=== PATIENT | female | born 1990 | race Caucasian/White ===

== ENCOUNTER 2022-04-27 20:54 | Emergency (ER) | payer OTHER, SELFPAY ==
[2022-04-27 21:00] VITALS: BP 137/88; PULSE 81; RESP 22; TEMP 36.6; O2SAT 97
[2022-04-27 22:05] LABS: Acetaminophen < 10 ug/mL (10-30); Ethanol (ETOH) < 10 mg/dL; HEMOLYSIS < 15 (0-50); Salicylate < 1.0 mg/dL (<20)
[2022-04-27 22:06] LABS: Add Manual Diff / Slide Review NO; Alanine Aminotransferase 48 IU/L (<35); Albumin 4.8 g/dL (3.5-5.0); Albumin Globulin Ratio 1.4 (1.0-2.8); Alkaline Phosphatase 110 U/L (38-126); Aspartate Aminotransferase 36 IU/L (14-36); BUN Creatinine Ratio 16.4 (6-22); Basophils Absolute Auto 100 /uL (0-100); Basophils Percent Auto 1.1 % (0-2); Bilirubin Total 0.6 mg/dL (0.2-1.3); Blood Urea Nitrogen 11 mg/dL (7-17); Calcium 9.4 mg/dL (8.4-10.2); Carbon Dioxide 22 mmol/L (22-32); Chloride 104 mmol/L (98-107); Eosinophils Absolute Auto 200 /uL (0-450); Estimated Glomerular Filt Rate > 60 mL/min (>60); Globulin 3.5 g/dL (1.7-4.1); Glucose 111 mg/dL (70-100); Hematocrit 35.6 % (36-46); Hemoglobin 12.6 g/dL (12.0-16.0); Lymphocytes Absolute Auto 2400 /uL (1100-4500); Mean Corpuscular HGB Conc 35.4 % (30-36); Mean Corpuscular Hemoglobin 30.2 PG (26-34); Mean Corpuscular Volume 85.3 fL (80-100); Monocytes Absolute Auto 400 /uL (0-900); Monocytes Percent Auto 6.8 % (3-14); Neutrophils Absolute Auto 3300 /uL (1500-7000); Neutrophils Percent Auto 52.1 % (50-75); Platelet Count 264 X10^3/uL (150-400); Potassium 3.7 mmol/L (3.4-5.1); Red Blood Cell Count 4.17 X10^6/uL (4.0-5.2); Red Cell Distribution Width 13.2 % (11.6-14.8); Sodium 138 mmol/L (137-145); Total Protein 8.3 g/dL (6.3-8.2); White Blood Cell Count 6.4 X10^3/uL (4.5-11.0)
[2022-04-27 22:35] LABS: Free T4, Direct Thyroxine 1.26 ng/dL (0.78-2.19)
[2022-04-27 22:44] LABS: UR Morphine/Opiate cutoff 300 Negative (Negative); Ur Creatinine 50 (Normal); Ur Specific Gravity 1.025 (Normal); Urine Amphetamines Negative (Negative); Urine Barbiturates Negative (Negative); Urine Benzodiazepines Negative (Negative); Urine Cocaine Negative (Negative); Urine MDMA Negative (Negative); Urine Methadone Negative (Negative); Urine Methamphetamines Negative (Negative); Urine Oxycodone Negative (Negative); Urine Phencyclidine Negative (Negative); Urine Tetrahydrocannabinol Negative (Negative); Urine Tricyclic Antidepressant Negative (Negative); Urine pH 5 (Normal)
[2022-04-27 22:50] LABS: Thyroid Stimulating Hormone 1.23 uIU/mL (0.47-4.68)
--- NOTE | 2022-04-28 00:18 | PC.NURSE ---
Patient laying back on gurney, sleeping. Respirations equal, regular and unlabored. No acute distress noted. Friend at bedside. 1:1 remains at bedside for safety.
--- NOTE | 2022-04-28 02:44 | PC.NURSE ---
Patient laying back on gurney, sleeping. Respirations equal, regular and unlabored. No acute distress noted. Friend sleeping at the bedside. 1:1 continued for safety.
--- NOTE | 2022-04-28 03:01 | PC.NURSE ---
GASOLINE DRAGLINE OPERATOR note: patient pumped and then went to the BR. Breast milk in fridge w/ label.
--- NOTE | 2022-04-28 06:35 | ED_ITS ---
HPI - Psych <Zoya Smith DO - Last Filed: 04/29/22 01:20> General Chief Complaint: Psychiatric Symptoms Stated Complaint: Needs to be seen, sent by [employer] Time Seen by Provider: 04/28/22 06:22 Source: patient Mode of arrival: Ambulatory History of Present Illness HPI Narrative: Patient is a healthy 31-year-old female within infant 2-month-old and a 3-year-old presenting today with suicidal ideations. States that she has started feeling this way for a couple of weeks. Stating that she just does not want to live. Her deployed last week for a six-month to [place] her feelings got even worse. She says she does not trust herself at home. There are multiple guns at home. She does not want to hurt her children however he just feels like she does not want to live. She does not want to feel this way she does not know why she is feeling this way. She does not trust herself. Related Data Allergies Allergy/AdvReac Type Severity Reaction Status Date / Time gluten Allergy Intermediate Hives Verified 04/28/22 06:35 Review of Systems <Zoya Smith DO - Last Filed: 04/29/22 01:20> Review of Systems Narrative: GENERAL: Denies chills,fever HEENT: Denies throat pain RESPIRATORY: Denies dyspnea, cough, wheezing CARDIOVASCULAR: Denies chest pain, palpitations GASTROINTESTINAL: Denies nausea, vomiting MUSCULOSKELETAL: Denies extremity pain, injury SKIN: No rash, no laceration, no pruritus NEUROLOGIC: Denies weakness, dizziness, headache, numbness 8 point review of systems is negative except for those stated above and HPI Psychiatric Psychiatric: Reports system reviewed and no additional complaints, except as documented, Denies homicidal ideation and Reports suicidal ideation Patient History <Zoya Smith DO - Last Filed: 04/29/22 01:20> Social History Smoking Status: Never smoker Smoking Status: Never smoker alcohol intake frequency: 0-2 drinks per day Exam <DO Dejon Kruse Last Filed: 04/29/22 01:20> Initial Vital Signs Initial Vital Signs: Vital Signs Temperature 97.8 F 04/27/22 21:00 Pulse Rate 81 04/27/22 21:00 Respiratory Rate 22 04/27/22 21:00 Blood Pressure 137/88 04/27/22 21:00 Pulse Oximetry 97 04/27/22 21:00 Oxygen Delivery Method 04/27/22 21:00 GENERAL: Tearful 31-year-old female CARDIOVASCULAR: peripheral pulses in tact, cap refill <2 sec RESPIRATORY: No respiratory distress, speaks in full sentences without difficulty EXTREMITIES: Normal range of motion, no clubbing or edema. Neurovascularly intact NEUROLOGICAL: Cranial nerves II through XII grossly intact. Normal gait and speech. SKIN: Warm, dry, no petechiae, no rashes or lesions. <Kita Dennis DO - Last Filed: 04/28/22 17:59> Initial Vital Signs Initial Vital Signs: Vital Signs Temperature 97.8 F 04/27/22 21:00 Pulse Rate 81 04/27/22 21:00 Respiratory Rate 22 04/27/22 21:00 Blood Pressure 137/88 04/27/22 21:00 Pulse Oximetry 97 04/27/22 21:00 Oxygen Delivery Method 04/27/22 21:00 Course <Zoya Smith DO - Last Filed: 04/29/22 01:20> Orders Ordered: Discontinued Medications Acetaminophen (Acetaminophen 325 Mg Tablet) 650 mg PO NOW ONE Stop: 04/28/22 12:32 Last Admin: 04/28/22 12:34 Dose: 650 mg Documented By: RASHMI Lorazepam (Lorazepam 0.5 Mg Tablet) 1 mg PO NOW ONE Stop: 04/28/22 13:54 Last Admin: 04/28/22 14:19 Dose: 1 mg Documented By: BRAULIO Vital Signs Vital signs: Vital Signs - 8 hr 04/28/22 17:37 Temperature 97.7 F Pulse Rate 79 Respiratory Rate 18 Blood Pressure 121/80 Pulse Oximetry 97 Oxygen Delivery Method Room Air <Kita Dennis DO - Last Filed: 04/28/22 17:59> Orders Ordered: Discontinued Medications Acetaminophen (Acetaminophen 325 Mg Tablet) 650 mg PO NOW ONE Stop: 04/28/22 12:32 Last Admin: 04/28/22 12:34 Dose: 650 mg Documented By: RASHMI Lorazepam (Lorazepam 0.5 Mg Tablet) 1 mg PO NOW ONE Stop: 04/28/22 13:54 Last Admin: 04/28/22 14:19 Dose: 1 mg Documented By: ADK Vital Signs Vital signs: Vital Signs - 8 hr 04/28/22 17:37 Temperature 97.7 F Pulse Rate 79 Respiratory Rate 18 Blood Pressure 121/80 Pulse Oximetry 97 Oxygen Delivery Method Room Air MDM - Psych <Zoya Sarah, - Last Filed: 04/29/22 01:20> Lab Data Result diagrams: 04/27/22 21:44 04/27/22 21:44 Labs: Lab Results 04/27/22 04/27/22 04/27/22 Range/Units 21:44 21:44 21:44 WBC 6.4 (4.5-11.0) X10^3/uL RBC 4.17 (4.0-5.2) X10^6/uL Hgb 12.6 (12.0-16.0) g/dL Hct 35.6 L (36-46) % MCV 85.3 (80-100) fL MCH 30.2 (26-34) PG MCHC 35.4 (30-36) % RDW 13.2 (11.6-14.8) % Plt Count 264 (150-400) X10^3/uL Neut % (Auto) 52.1 (50-75) % Lymph % (Auto) 37.0 (25-40) % [place] % (Auto) 6.8 (3-14) % Eos % (Auto) 3.0 (2-4) % Baso % (Auto) 1.1 (0-2) % Neut # (Auto) 3300 (8628-2210) /uL Lymph # (Auto) 2400 (1790-6722) /uL [place] # (Auto) 400 (0-900) /uL Eos # (Auto) 200 (0-450) /uL Baso # (Auto) 100 (0-100) /uL Sodium 138 (137-145) mmol/L Potassium 3.7 (3.4-5.1) mmol/L Chloride 104 (98-107) mmol/L Carbon Dioxide 22 (22-32) mmol/L BUN 11 (7-17) mg/dL Creatinine 0.67 (0.52-1.04) mg/dL Estimated GFR > 60 (>60) mL/min BUN/Creatinine Ratio 16.4 (6-22) Glucose 111 H (70-100) mg/dL Calcium 9.4 (8.4-10.2) mg/dL Total Bilirubin 0.6 (0.2-1.3) mg/dL AST 36 (14-36) IU/L ALT 48 H (<35) IU/L Alkaline Phosphatase 110 (38-126) U/L Total Protein 8.3 H (6.3-8.2) g/dL Albumin 4.8 (3.5-5.0) g/dL Globulin 3.5 (1.7-4.1) g/dL Albumin/Globulin Ratio 1.4 (1.0-2.8) TSH 1.23 (0.47-4.68) uIU/mL Free T4 1.26 (0.78-2.19) ng/dL Salicylates < 1.0 (<20) mg/dL U Opiates 300ng/mL cut (Negative) Ur Oxycodone Screen (Negative) Urine Methadone Screen (Negative) Acetaminophen < 10 (10-30) ug/mL Ur Barbiturates Screen (Negative) U Tricyclic Antidepress (Negative) Ur Phencyclidine Scrn (Negative) Ur Amphetamines Screen (Negative) U Methamphetamines Scrn (Negative) Ur MDMA Scrn (Ecstasy) (Negative) U Benzodiazepines Scrn (Negative) Urine Cocaine Screen (Negative) U Marijuana (THC) Screen (Negative) Ethyl Alcohol < 10 ( - 10) mg/dL SARS-CoV-2 (PCR) (Negative) 04/27/22 04/28/22 Range/Units 22:35 12:23 WBC (4.5-11.0) X10^3/uL RBC (4.0-5.2) X10^6/uL Hgb (12.0-16.0) g/dL Hct (36-46) % MCV (80-100) fL MCH (26-34) PG MCHC (30-36) % RDW (11.6-14.8) % Plt Count (150-400) X10^3/uL Neut % (Auto) (50-75) % Lymph % (Auto) (25-40) % [place] % (Auto) (3-14) % Eos % (Auto) (2-4) % Baso % (Auto) (0-2) % Neut # (Auto) (2963-5766) /uL Lymph # (Auto) (3390-7705) /uL [place] # (Auto) (0-900) /uL Eos # (Auto) (0-450) /uL Baso # (Auto) (0-100) /uL Sodium (137-145) mmol/L Potassium (3.4-5.1) mmol/L Chloride (98-107) mmol/L Carbon Dioxide (22-32) mmol/L BUN (7-17) mg/dL Creatinine (0.52-1.04) mg/dL Estimated GFR (>60) mL/min BUN/Creatinine Ratio (6-22) Glucose (70-100) mg/dL Calcium (8.4-10.2) mg/dL Total Bilirubin (0.2-1.3) mg/dL AST (14-36) IU/L ALT (<35) IU/L Alkaline Phosphatase (38-126) U/L Total Protein (6.3-8.2) g/dL Albumin (3.5-5.0) g/dL Globulin (1.7-4.1) g/dL Albumin/Globulin Ratio (1.0-2.8) TSH (0.47-4.68) uIU/mL Free T4 (0.78-2.19) ng/dL Salicylates (<20) mg/dL U Opiates 300ng/mL cut Negative (Negative) Ur Oxycodone Screen Negative (Negative) Urine Methadone Screen Negative (Negative) Acetaminophen (10-30) ug/mL Ur Barbiturates Screen Negative (Negative) U Tricyclic Antidepress Negative (Negative) Ur Phencyclidine Scrn Negative (Negative) Ur Amphetamines Screen Negative (Negative) U Methamphetamines Scrn Negative (Negative) Ur MDMA Scrn (Ecstasy) Negative (Negative) U Benzodiazepines Scrn Negative (Negative) Urine Cocaine Screen Negative (Negative) U Marijuana (THC) Screen Negative (Negative) Ethyl Alcohol ( - 10) mg/dL SARS-CoV-2 (PCR) Negative (Negative) Point of Care Testing Test Results Negative Urine Dip Bedside Urine Glucose Negative Bedside Urine Bilirubin - Negative Bedside Urine Ketone - Negative Bedside Urine Occult Blood - Negative Bedside Urine Protein - Negative Bedside Urine Urobilinogen - Negative Bedside Urine Nitrite - Negative Bedside Urine Leukocytes - Negative Esterase MDM Narrative Medical decision making narrative: Patient currently is voluntary. Awaiting social Work evaluation with probable placement. Patient does have twdfhg-ev-clr here now for temporary help with children. She does have a couple with friends. 1 is here now. Patient signed out to Dr. Dennis for further evaluation management and di sposition. 04/28/22 Jeannie: Patient signed out to myself by Dr. Smith. Patient has been having suicidal ideation she has express that she is not sure she can stay safe with her kids at home she is voluntary. She is quite anxious and concerned that she might lose her children if she goes inpatient but is seeking treatment. She has been in contact with multiple pull friends there is a tzdakk-gf-fbu here for temporary help with the children and her who is currently deployed is in process of being contacted. Patient had 1 dose of oral Ativan which she found mildly helpful. She was significantly more anxious once EMS arrived but continues to be agreeable. She has been pumping breast milk, discussed options she can ask for supervised pumping with a regular pump, she can asked to have a hand pump she is trying to wean down and we discussed potential treatments to help prevent mastitis and engorgement. Patient was found placement at [facility] and had prior authorization from [facility] [place]. <Kita Dennis, DO - Last Filed: 04/28/22 17:59> Lab Data Labs: Lab Results 04/27/22 04/27/22 04/27/22 Range/Units 21:44 21:44 21:44 WBC 6.4 (4.5-11.0) X10^3/uL RBC 4.17 (4.0-5.2) X10^6/uL Hgb 12.6 (12.0-16.0) g/dL Hct 35.6 L (36-46) % MCV 85.3 (80-100) fL MCH 30.2 (26-34) PG MCHC 35.4 (30-36) % RDW 13.2 (11.6-14.8) % Plt Count 264 (150-400) X10^3/uL Neut % (Auto) 52.1 (50-75) % Lymph % (Auto) 37.0 (25-40) % [place] % (Auto) 6.8 (3-14) % Eos % (Auto) 3.0 (2-4) % Baso % (Auto) 1.1 (0-2) % Neut # (Auto) 3300 (8296-6553) /uL Lymph # (Auto) 2400 (4907-5951) /uL [place] # (Auto) 400 (0-900) /uL Eos # (Auto) 200 (0-450) /uL Baso # (Auto) 100 (0-100) /uL Sodium 138 (137-145) mmol/L Potassium 3.7 (3.4-5.1) mmol/L Chloride 104 (98-107) mmol/L Carbon Dioxide 22 (22-32) mmol/L BUN 11 (7-17) mg/dL Creatinine 0.67 (0.52-1.04) mg/dL Estimated GFR > 60 (>60) mL/min BUN/Creatinine Ratio 16.4 (6-22) Glucose 111 H (70-100) mg/dL Calcium 9.4 (8.4-10.2) mg/dL Total Bilirubin 0.6 (0.2-1.3) mg/dL AST 36 (14-36) IU/L ALT 48 H (<35) IU/L Alkaline Phosphatase 110 (38-126) U/L Total Protein 8.3 H (6.3-8.2) g/dL Albumin 4.8 (3.5-5.0) g/dL Globulin 3.5 (1.7-4.1) g/dL Albumin/Globulin Ratio 1.4 (1.0-2.8) TSH 1.23 (0.47-4.68) uIU/mL Free T4 1.26 (0.78-2.19) ng/dL Salicylates < 1.0 (<20) mg/dL U Opiates 300ng/mL cut (Negative) Ur Oxycodone Screen (Negative) Urine Methadone Screen (Negative) Acetaminophen < 10 (10-30) ug/mL Ur Barbiturates Screen (Negative) U Tricyclic Antidepress (Negative) Ur Phencyclidine Scrn (Negative) Ur Amphetamines Screen (Negative) U Methamphetamines Scrn (Negative) Ur MDMA Scrn (Ecstasy) (Negative) U Benzodiazepines Scrn (Negative) Urine Cocaine Screen (Negative) U Marijuana (THC) Screen (Negative) Ethyl Alcohol < 10 ( - 10) mg/dL SARS-CoV-2 (PCR) (Negative) 04/27/22 04/28/22 Range/Units 22:35 12:23 WBC (4.5-11.0) X10^3/uL RBC (4.0-5.2) X10^6/uL Hgb (12.0-16.0) g/dL Hct (36-46) % MCV (80-100) fL MCH (26-34) PG MCHC (30-36) % RDW (11.6-14.8) % Plt Count (150-400) X10^3/uL Neut % (Auto) (50-75) % Lymph % (Auto) (25-40) % [place] % (Auto) (3-14) % Eos % (Auto) (2-4) % Baso % (Auto) (0-2) % Neut # (Auto) (4073-8717) /uL Lymph # (Auto) (4305-2265) /uL [place] # (Auto) (0-900) /uL Eos # (Auto) (0-450) /uL Baso # (Auto) (0-100) /uL Sodium (137-145) mmol/L Potassium (3.4-5.1) mmol/L Chloride (98-107) mmol/L Carbon Dioxide (22-32) mmol/L BUN (7-17) mg/dL Creatinine (0.52-1.04) mg/dL Estimated GFR (>60) mL/min BUN/Creatinine Ratio (6-22) Glucose (70-100) mg/dL Calcium (8.4-10.2) mg/dL Total Bilirubin (0.2-1.3) mg/dL AST (14-36) IU/L ALT (<35) IU/L Alkaline Phosphatase (38-126) U/L Total Protein (6.3-8.2) g/dL Albumin (3.5-5.0) g/dL Globulin (1.7-4.1) g/dL Albumin/Globulin Ratio (1.0-2.8) TSH (0.47-4.68) uIU/mL Free T4 (0.78-2.19) ng/dL Salicylates (<20) mg/dL U Opiates 300ng/mL cut Negative (Negative) Ur Oxycodone Screen Negative (Negative) Urine Methadone Screen Negative (Negative) Acetaminophen (10-30) ug/mL Ur Barbiturates Screen Negative (Negative) U Tricyclic Antidepress Negative (Negative) Ur Phencyclidine Scrn Negative (Negative) Ur Amphetamines Screen Negative (Negative) U Methamphetamines Scrn Negative (Negative) Ur MDMA Scrn (Ecstasy) Negative (Negative) U Benzodiazepines Scrn Negative (Negative) Urine Cocaine Screen Negative (Negative) U Marijuana (THC) Screen Negative (Negative) Ethyl Alcohol ( - 10) mg/dL SARS-CoV-2 (PCR) Negative (Negative) Point of Care Testing Test Results Negative Urine Dip Bedside Urine Glucose Negative Bedside Urine Bilirubin - Negative Bedside Urine Ketone - Negative Bedside Urine Occult Blood - Negative Bedside Urine Protein - Negative Bedside Urine Urobilinogen - Negative Bedside Urine Nitrite - Negative Bedside Urine Leukocytes - Negative Esterase MDM Narrative Medical decision making narrative: Patient currently is voluntary. To flee knees social Work evaluation with proba ble placement. Patient does have wetpfn-du-ycb here now for temporary help with children. She does have a couple with friends. 1 is here now. Patient signed out to Dr. Dennis for further evaluation management and disposition. 04/28/22 Jeannie: Patient signed out to myself by Dr. Smith. Patient has been having suicidal ideation she has express that she is not sure she can stay safe with her kids at home she is voluntary. She is quite anxious and concerned that she might lose her children if she goes inpatient but is seeking treatment. She has been in contact with multiple pull friends there is a souaza-ns-zpe here for temporary help with the children and her who is currently deployed is in process of being contacted. Patient had 1 dose of oral Ativan which she found mildly helpful. She was significantly more anxious once EMS arrived but continues to be agreeable. She has been pumping breast milk, discussed options she can ask for supervised pumping with a regular pump, she can asked to have a hand pump she is trying to wean down and we discussed potential treatments to help prevent mastitis and engorgement. Patient was found placement at [facility] and had prior authorization from [facility] [place]. Discharge Plan Departure Patient Disposition: Xfer Psychiatric Hosp Clinical Impression: Suicidal ideation Referrals: Provider,Tonny VALLECILLO [Primary Care Provider] -
[2022-04-28 07:01] VITALS: BP 111/65; PULSE 75; RESP 14; O2SAT 99
--- NOTE | 2022-04-28 11:58 | PC.NURSE ---
Patient is very tearful and worried about her children. Patient understand that she did the right thing coming in to the E.D. Friend is at bedside and is comforting patient. Pt. would like a shower later today after talking with [employer]AME MAKER. Pt stated she is gluten free. Patient did request something like Tylenol for my headache? SALEEM Lee notified and asked to change diet order. Patient pumped and breast milk is stored in fridge with pt. label. SALEEM Lee aware.
[2022-04-28] MEDS: ACETAMINOPHEN 325 MG TABLET 650 MG PO (12:34)
[2022-04-28 12:59] LABS: COVID19 -Nasal RAPID Negative (Negative)
[2022-04-28 13:00] VITALS: BP 132/68; PULSE 78; RESP 15; O2SAT 98
--- NOTE | 2022-04-28 13:32 | PC.NURSE ---
Patient is very tearful after talking with [employer] TOP HELPER. Pt. stated I want my . after talking with patient and with lots of reassurance. patient has calm down and agreed to a protein smoothie since patient has refused breakfast and lunch. RN notified.
[2022-04-28] MEDS: LORazepam 0.5 MG TABLET 1 MG PO (14:19)
--- NOTE | 2022-04-28 14:54 | CM.SWNOTE ---
MANAGER OF SALES - Travel Agent Assessment MANAGER OF SALES - Travel Agent Assessment Start: 04/28/22 14:26 Freq: Status: Active Protocol: Document 04/28/22 14:26 TRISHA (Rec: 04/28/22 14:53 FJ [id number]) MANAGER OF SALES/Travel Agent Assessment Time Spent with Patient Start date 04/28/22 Visit Start Time 12:15 End date 04/28/22 Visit End Time 13:45 Total time Care Management spent on 90 patient visit-in minutes Mental Health Screening Include Onset, Duration, Intensity Presenting Problem Patient presented to ED reporting suicidal and homicidal ideation secondary to presumed PPD. Patient was accompanied by a friend. Patient was medically cleared by attending physician prior to assessment commencing. Precipitating Event(s) Patient's youngest child is 2 months old. Patient has been having increasing depression and anxiety symptoms since giving . Patient reported over the last three days having thoughts of extreme self harm, having to have weapons removed from her home, and thoughts of ending her life or her and her children's lives. Patient sought help at another ED but was discharged home they said there was nothing they could do for me. Patient seeking inpatient psychiatric care for stabilization and in order to discharge to less restrictive option once stabilized. Patient Strengths Patient is very much wanting to stabilize in order to be able to safely care for herself and her children. Patient has coordinated a plan for her children to be cared for (her spouse is deployed). Patient is willing to engage with treatment sessions and be medication compliant in order to stabilize. Patient is voluntarily seeking inpatient psychiatric admission although she is very concerned about being away from her three very young children. Current Behavioral Health Provider(s) Patient not currently engaged Include Facility, Provider, Ph. # with o/p services. Psych. Hx Mental Health and Chemical Patient reported history of o/ Dependency p counseling when she was in secondary to foster care placement and upbringing and associated traumas. Patient reported being on depression medication as well as adderall in her teen years. No PALOMA reported. Family Hx of Behavioral Abuse Unknown Psychiatric Hospitalizations (date(s)/ Patient has no history of location) psychiatric hospitalization. Psychosocial information & Support Patient is to [place] who Systems is currently deployed. Patient's MIL has come up from [place] to assist with caring for children who are 3yo, 2yo, 2mo. Patient's MIL has leukemia so wives who are patient's friends have also volunteered to assist with childcare while patient is admitted. Patient's spouse is being considered for being brought back from deployment. 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 She attended one year of college before she . She has not furthered her education past this one year. Mental Status Orientation (Person/Place/Time) Patient is oriented to person, place, time, circumstance. She has good insight into her current life circumstances as well as her psychiatric symptoms. She is appropriately concerned. Stated Mood Anxious, depressed, labile Affect (Congruent with Mood?) tearful with mild panic attacks (breathing exercise managed) Thought Content - Specify/Describe Patient is not reporting Obsessions, Delusions, Hallucinations hallucinations and is not indicating delusions. Patient has been obsessing with ending her life over the past three days. Thought Processes (Fzcjyhc-Syibxkzw-Eilh Patient's thought content is Yfryignv-Sbapicgq-Kwvrqlldyc- logical and linear without Jemywnanaqgxcm-Crecvgw-Tclxivsvhsco- thought disturbance. Patient Thought Blocking) is goal oriented. Speech (Mqalir-Joaa-Omykowg-Rapid-Soft- Patient does have some minor Loud-Pressured) delays in responding which she attributes to a fog, blockage due to lack of sleep . Patient's speech is otherwise lowered volume, normal rate when speaking, tearful tone. Motor (Egkfzg-Lnvgyuniv-Kdug-Other) Patient's psychomotor activity is wnl. Insight (Gyna-Ohwo-Jxtu/Limited) insight is good Judgement (Tjin-Tukl-Pnxn/Limited) patient has good judgement Impulse Control (Adequate-Impaired) patient has very poor impulse control due to lack of sleep and state of confusion Memory (Nwddwbgcj-Jxxslu-Daujdk, patient's memory is intact ( Impaired-Intact) not formally tested) Concentration (Intact-Impaired) Patient is having concentration impairments, related to sleep deprivation and racing/obsessive thoughts Attention (Intact-Impaired) impaired, see above Behavior (Appropriate-Inappropriate) appropriate, cooperative Risk Assessment Suicidal Ideation (Plan) Yes: firearms removed from home as patient planned which one she would use Homicidal Ideation (Plan) Yes: patient intermittently considered ending her children 's lives, no intent Comment Diagnosis: MDD with peripartum onset, suicial ideations with plan and intent Patient does not have history of prior attempts or self harming behaviors. I'm usually a very happy and loving person and mother. I take really good care of my kids. This isn't normal. I need help Intervention Intervention Patient is seeking inpatient psychiatric care in order to begin medications and hopes to be referred to maternity support services on [facility] for discharge follow up . Contact is Mirna Hernandez RN BSN [phone] Plan RA Plan garment worker will seek inpatient psychiatric admission for patient. PADMINI TOLBERTSW
--- NOTE | 2022-04-28 15:30 | PC.NURSE ---
checked in on patient and visitor. offered refreshments. refreshments declined, pt is asking about medication to help her sleep. notified pt's RN of pt request.
[2022-04-28 15:46] VITALS: BP 109/72; PULSE 72; RESP 18; O2SAT 96
[2022-04-28 17:37] VITALS: BP 121/80; PULSE 79; RESP 18; TEMP 36.5; O2SAT 97
--- NOTE | 2022-04-28 18:02 | PC.NURSE ---
Patient belongings including breast milk sent home with patient's friends. Transport took patient's wheeled suitcase, breast pump, and cell phone with patient.
== END 2022-04-28 18:03 ==
PROVIDERS: Emergency Medicine; Emergency Provider Emergency Medicine
DX: R45.851 Suicidal ideations (principal); Z20.822 Contact with and (suspected) exposure to COVID-19
CPT/HCPCS: 36415; 80053; 80305; 80320; 80329; 81003; 81025; 84439; 84443; 85025; 87635; 99284; C9803; G0480